=== PATIENT | male | born 1945 | race Caucasian/White ===

== ENCOUNTER 2017-09-13 09:20 | Day surgery (SDC) | payer MEDICARE, BC ==
[~2017-09-13 09:20] MED LIST: LIDOCAINE HCL 1% MPF SOL ONE; PROPOFOL 500 MG/50 ML EMU IV ONE
[2017-09-13 11:08] VITALS: O2SAT 97
[2017-09-13 11:35] VITALS: BP 153/98; PULSE 67; RESP 18; TEMP 97.4
[2017-09-13] MEDS: PEG-400/PROPYLENE GLYCOL 1 DROP SOL ONE (11:39)
== END 2017-09-13 11:53 | disposition home or self-care (01) | DRG 951 ==
LOC: SURG 09:20
PROVIDERS: ATTEND Surgery
DX: Z12.11 Encounter for screening for malignant neoplasm of colon (principal); K63.5 Polyp of colon; Z80.0 Family history of malignant neoplasm of digestive organs; Z86.010 Personal history of colon polyps; K63.89 Other specified diseases of intestine
CPT/HCPCS: A9270-GY; J2001; J2704

== ENCOUNTER 2018-02-28 16:42 | Emergency (ER) | payer MEDICARE, BC ==
[2018-02-28 16:43] VITALS: O2SAT 97
[2018-02-28 17:12] VITALS: PULSE 72; RESP 16; TEMP 97.8
[2018-02-28 17:25] VITALS: BP 173/104
[2018-02-28] MEDS ORDERED: SULFAMETHOXAZOLE/TRIMETHOPRI 800/160 MG PO ONE (17:25)
[2018-02-28] MEDS ORDERED: SULFAMETHOXAZOLE/TRIMETHOPRI 800/160 MG ONE (17:29)
== END 2018-02-28 17:45 | disposition home or self-care (01) | DRG 603 ==
LOC: ED 16:42
DX: L03.012 Cellulitis of left finger (principal)
CPT/HCPCS: 99282; A9270-GY